=== PATIENT | female | born 1985 | race Hispanic/Latino ===

== ENCOUNTER 2021-09-28 10:13 | Observation (INO) | payer MEDICAID ==
[~2021-09-28] VITALS: Ht 154.9 cm; Wt 84.0 kg
[2021-09-28 11:28] LABS: APPEARANCE,URINE Cloudy (CLEAR); BILIRUBIN,URINE Negative (NEGATIVE); COLOR,URINE Yellow (YELLOW); GLUCOSE, URINE (UA) >=1000 mg/dL (NEGATIVE); KETONES,URINE Negative (NEGATIVE); LEUKOCYTE ESTERASE ,URINE Negative (NEGATIVE); NITRATE,URINE Negative (NEGATIVE); OCCULT BLOOD,URINE Negative (NEGATIVE); PH,URINE 7.5 (5.0-8.0); PROTEIN,URINE Negative (NEGATIVE); UROBILINOGEN,URINE 0.2 mg/dL (0.2-1.0)
[2021-09-28 11:36] LABS: HCG,QUAL RESULT NEGATIVE (NEGATIVE)
[2021-09-28 11:39] LABS: BACTERIA,URINE Rare /HPF (None Seen); RBC,URINE 0-1 /HPF (0-1); SQUAMOUS EPITHELIAL CELL,UR Rare /HPF (0-2); WBC,URINE 0-1 /HPF (0-1); YEAST,URINE BUDDING Few /HPF (None Seen)
[2021-09-28 13:10] LABS: BASOPHILS % (AUTO) 0.6 % (0.0-5.0); EOSINOPHILS % (AUTO) 1.4 % (0.0-8.0); HEMATOCRIT 45.3 % (36-48); LYMPHOCYTES % (AUTO) 30.3 % (21.0-51.0); MEAN CORPUSCULAR HEMOGLOBIN 29.2 pg (27.0-33.0); MEAN CORPUSCULAR VOLUME 85.8 fL (79-99); MONOCYTES % (AUTO) 5.8 % (3.0-13.0); NEUTROPHILS % (AUTO) 61.6 % (40.0-77.0); PLATELET COUNT (AUTO) 212 K/uL (130-400); RED BLOOD CELL COUNT(AUTO) 5.28 MIL/uL (4.00-5.50); WHITE BLOOD COUNT (AUTO) 7.8 K/uL (4.8-10.8)
[2021-09-28 13:21] LABS: CREATININE 0.7 mg/dL (0.5-1.5)
[2021-09-28 13:25] LABS: ALBUMIN 4.1 g/dL (3.5-5.0); BILIRUBIN,TOTAL 0.4 mg/dL (0.2-1.0); TOTAL PROTEIN, SERUM 8.1 g/dL (6.0-8.3)
[2021-09-28] MEDS ORDERED: IOHEXOL-350 75 ML VIAL IV ONE (14:03)
[2021-09-28 14:32] LABS: ERYTHROCYTE SEDIMENTATION RATE 17 MM/HR (0-20)
[2021-09-28] MEDS ORDERED: ACETAMINOPHEN 325 MG TAB PO PRN ×2 (17:00)
[2021-09-28] MEDS ORDERED: PROCHLORPERAZINE 10MG/2ML INJ ONE ×2 (17:52→22:05)
[2021-09-28] MEDS: PROCHLORPERAZINE EDISYLATE 5 MG/ML 2 ML VIAL IVP PRN ×2 (17:52→22:07)
[2021-09-28] MEDS: KETOROLAC 30MG VIAL (30MG/ML) IV PRN ×2 (17:53→22:07)
[2021-09-28 18:08] LABS: HEMOGLOBIN A1C 10.7 % (4.0-6.0)
[2021-09-28] MEDS ORDERED: ATOR40TA69 PO (20:11)
[2021-09-28] MEDS ORDERED: LISI2.5T13 PO (20:11)
[2021-09-28] MEDS ORDERED: INSU100V37 SQ (20:11)
[2021-09-28] MEDS ORDERED: SEMA1PEN3 SQ (20:11)
[2021-09-28] MEDS: FAMOTIDINE 20MG VIAL IV SCH (22:07)
[2021-09-29 03:30] VITALS: BP 118/86
[2021-09-29] MEDS: FAMOTIDINE 20MG VIAL IV SCH ×2 (07:08→20:17)
[2021-09-29] MEDS ORDERED: GADOTERATE MEGLUMINE 10 MMOL/20 ML VIAL IV ONE (08:59)
[2021-09-29 09:31] VITALS: BP 122/76
[2021-09-29 11:58] VITALS: BP 131/87
[2021-09-29 15:45] LABS: GLUCOSE, CSF 143 mg/dL (40-70); TOTAL PROTEIN, CSF 39 mg/dL (15-45)
[2021-09-29] MEDS: INSULIN HUMULIN R 100 UNIT/ML 3ML SQ SCH ×3 (16:01→20:26)
[2021-09-29 16:33] LABS: CSF TUBE NUMBER 1
[2021-09-29 16:34] LABS: APPEARANCE,CSF CLEAR (CLEAR); COLOR,CSF COLORLESS (COLORLESS); RED BLOOD CELL1,CSF 68 CMM (0-0); WHITE BLOOD CELL1,CSF 0 CMM (0-5)
[2021-09-29 16:35] LABS: APPEARANCE2,CSF CLEAR (CLEAR); COLOR2,CSF COLORLESS (COLORLESS); CSF 2ND TUBE NUMBER 2
[2021-09-29 16:51] VITALS: BP 131/87
[2021-09-29 19:00] VITALS: BP 128/93
[2021-09-29] MEDS ORDERED: INSULIN GLARGINE 100 UNITS/ML 10 ML VIAL SQ SCH (21:00)
[2021-09-30] VITALS: BP 122/83
[2021-09-30] MEDS: KETOROLAC 30MG VIAL (30MG/ML) IV PRN (01:07)
[2021-09-30 04:00] VITALS: BP 110/69
[2021-09-30] MEDS: INSULIN HUMULIN R 100 UNIT/ML 3ML SQ SCH ×6 (06:18→16:44)
[2021-09-30 08:00] VITALS: BP 121/81
[2021-09-30] MEDS ORDERED: FAMOTIDINE 20MG TAB PO SCH (09:00)
[2021-09-30] MEDS ORDERED: LISINOPRIL 2.5 MG TABLET PO SCH (09:00)
[2021-09-30] MEDS ORDERED: ATORVASTATIN 40 MG TABLET PO SCH (09:00)
[2021-09-30] MEDS ORDERED: FOLIC ACID 1 MG TABLET PO SCH (10:28)
[2021-09-30] MEDS ORDERED: TOPIRAMATE 25 MG TABLET PO SCH (10:28)
[2021-09-30 12:00] VITALS: BP 118/92
[2021-09-30] MEDS ORDERED: ACET250T3 PO (14:17)
[2021-09-30 16:00] VITALS: BP 115/81
[2021-10-02 07:16] LABS: HSV 1/2 COMBINED AB IGG CSF 1.25 IV (<=0.89); HSV TYPE 1/2 COMBINED IGM CSF 0.13 IV (<=0.89); MUMPS VIRUS IGG ANTIBODY CSF <5.0 AU/mL (<=10.9); MUMPS VIRUS IGM ANTIBODY CSF 0.07 IV (<=0.79); RUBEOLA (MEASLES) IGM CSF 0.22 AU (0.00-0.79); VARICELLA IGG ANTIBODY CSF <10.0 IV (.); WEST NILE VIRUS IGG CSF 0.05 IV (<=1.29)
[2021-10-07] MEDS ORDERED: TOPIRAMATE 25 MG TABLET PO SCH (09:00)
== END 2021-09-30 17:25 | disposition home or self-care (01) ==
LOC: EDH 10:13 → EDHIP 17:00 → 4DH 09-29 02:45
PROVIDERS: ADMIT Internal Medicine; ATTEND Internal Medicine
DX: G44.89 Other headache syndrome (principal); I10 Essential (primary) hypertension; E11.65 Type 2 diabetes mellitus with hyperglycemia; E78.5 Hyperlipidemia, unspecified; E66.9 Obesity, unspecified; E78.00 Pure hypercholesterolemia, unspecified; Z68.36 Body mass index [BMI] 36.0-36.9, adult; Z30.2 Encounter for sterilization; Z79.899 Other long term (current) drug therapy
CPT/HCPCS: 36415 ×2; 70496; 70498; 70544; 70553; 80053; 81001; 81025; 82945; 82948 ×7; 83036; 84157; 84443; 85025; 85651; 86694 ×2; 86735 ×2; 86765 ×2; 86787 ×2; 86788 ×2; 87071; 87147; 87205; 89051 ×2; 96372 ×2; 96374; 96375; 96376 ×3; 99285; A9575; G0378 ×46; J0780 ×2; J1815 ×4; J1885 ×3; J3490; S0028 ×3; Q9967